=== PATIENT | male | born 1955 | race Caucasian/White ===

== ENCOUNTER 2024-01-16 16:58 | Emergency (ER) | payer OTHER, SELFPAY ==
[2024-01-16 17:01] VITALS: BP 158/90
[2024-01-16 17:08] VITALS: BP 158/90
[2024-01-16] MEDS: ADACEL 0.5 ML IM (18:31)
[2024-01-16] MEDS: KEFLEX 500 MG PO (18:31)
--- NOTE | 2024-01-16 23:35 | ED.SKININJ ---
HPI-Injury
General
Chief Complaint: Skin Surface Trauma
Source: patient
Exam Limitations: none
Time Seen by Provider: 01/16/24 18:06
Nursing documentation reviewed up to this point in time: agreed with
History of Present Illness-Injury
Is this injury a work related problem?: No
Is pt an associate of [facility]/[place]?: No
Initial Injury comments:
Patient states he accidentally drilled a screw into his left distal lateral thumb. Screw went thru lateral distal thumb involving soft tissue only. Injury occurred just [employer]. Brouoght to ED by spouse for eval.
Past History
Past History
ED Past Medical History: None
Review of Systems
Review of Systems
Allergies reviewed?: Yes
All Other Systems: ROS reviewed and negative except as documented in HPI and ROS
Constitutional: Reports no symptoms
Musculoskeletal: Reports no symptoms
Skin: Reports other (Puncture to left lateral distal thumb)
Neurological: Reports no symptoms
Psychiatric: Reports no symptoms
Skin Exam
Puncture Wound
Left Lateral Distal Thumb:
Type of puncture wound: sharp piece of metal
Age of puncture wound: within last several hours
Any active bleeding?: no active bleeding
Distal skin color and temperature: normal-warm & good color
Normal distal neurovascular exam: Yes
Phy Exam
General Physical Exam
General Presentation: well appearing and no apparent distress
General age: appears stated age
General Skin: warm and dry
General Habitus: normal
General Mental: alert
Musculoskeletal Exam
Musculoskeletal Exam: full ROM, neuro vasc intact and other (Soft tissue injury only.)
Skin Exam
Skin Exam: normal color, warm/dry and no rash
Psychiatric Exam
Psychiatric Exam: normal mood/affect
Course
Orders/Labs/Results
Orders:
Orders
01/16/24 18:26
Cephalexin Monohydrate [Keflex] 500 mg PO NOW STA
Tetanus/Diphth/Acelpertussis [Adacel] 0.5 ml IM .ONCE ONE
Vital Signs
Initial and Last Documented VS:
Initial Vital Signs
Temp Pulse BP Pulse Ox
98.1 F 100 158/90 97
01/16/24 17:01 01/16/24 17:01 01/16/24 17:01 01/16/24 17:01
Last Documented Vital Signs
Temp Pulse Resp BP Pulse Ox
98.1 F 100 18 158/90 97
01/16/24 17:08 01/16/24 17:08 01/16/24 17:08 01/16/24 17:08 01/16/24 17:08
*Critical Care Note
Total Time (30-74mins, 75-104mins- exclusive of procedures): Not Applicable
ED Attending Note
-
Portions of this chart may have been created with voice recognition software.� Occasional wrong word or��sound alike� substitutions may have occurred due to the inherent limitations of voice recognition software.
Discharge Plan
Departure
Patient Disposition: Home (Routine Discharge)
Date of Disposition: 01/16/24
Time of Disposition: 18:27
Patient with high blood pressure during this ER visit?: No
Condition: Good
Covid-19: Not Applicable
Discharge Problem:
Puncture wound of finger
Instructions: Wound Care (DC)
Prescriptions:
New
cephalexin 500 mg capsule
500 mg PO BID 7 Days Qty: 14 0RF
Activity Restrictions/Additional Instructions:
Followup with your family doctor.
Interventions
Interventions:
*Risk Screen - Suicide Last Done: 01/16/24 19:00
*General Assessment Last Done: 01/16/24 19:00
*Neglect/Abuse Screening Last Done: 01/16/24 19:00
ED- Fall Risk Assessment Last Done: 01/16/24 19:18
*ED COVID-19 Vaccine History Last Done: 01/16/24 17:08
*Nursing Disposition Last Done: 01/16/24 19:00
ED-Skin Assessment Last Done: 01/16/24 19:18
Discharge Date and Time
Discharge Date/Time: 01/16/24 19:21
Print Language: MACANESE
== END 2024-01-16 19:21 | disposition home or self-care (01) ==
LOC: EMR 16:58
PROVIDERS: EMERGENCY PHYSICIAN Emergency Medicine; FAMILY PHYSICIAN Family Medicine
DX: S61.032A Puncture wound without foreign body of left thumb without damage to nail, initial encounter (principal); W45.0XXA Nail entering through skin, initial encounter; Z23 Encounter for immunization
CPT/HCPCS: 99283; 90471; 90715

== ENCOUNTER → 2024-05-11 12:10 | Outpatient (REF) | payer OTHER, SELFPAY | LOC: HWRAD 12:10 | PROVIDERS: ATTENDING PHYSICIAN Physician Assistant Medical | DX: M25.561 Pain in right knee (principal) | CPT/HCPCS: 73564 ==

== ENCOUNTER 2024-06-07 06:30 | Outpatient (RCR) | payer OTHER, SELFPAY | END 2024-06-07 23:59 | disposition home or self-care (01) | LOC: RPT 06:30 | PROVIDERS: ATTENDING PHYSICIAN Physician Assistant Medical; FAMILY PHYSICIAN Family Medicine | DX: M25.561 Pain in right knee (principal); Z73.6 Limitation of activities due to disability | CPT/HCPCS: 97010; 97110; 97162 ==

== ENCOUNTER 2024-07-11 06:17 | Outpatient (RCR) | payer OTHER, SELFPAY | END 2024-07-11 23:59 | disposition home or self-care (01) | LOC: RPT 06:17 | PROVIDERS: ATTENDING PHYSICIAN Physician Assistant Medical; FAMILY PHYSICIAN Family Medicine | DX: M25.561 Pain in right knee (principal); Z73.6 Limitation of activities due to disability | CPT/HCPCS: 97110; 97112 ==